=== PATIENT | male | born 1995 | race African-American/Black ===

== ENCOUNTER 2018-03-14 07:55 | Emergency (ER) | payer SELFPAY ==
[~2018-03-14] VITALS: Ht 167.6 cm; Wt 66.7 kg
--- NOTE | 2018-03-14 09:23 | ED EENT ---
History of Present Illness General Chief Complaint: Oral/Throat Problems Stated Complaint: THROAT HURTING, EAR HURTING Nursing Triage Note: ARRIVED VIA AMB TO ROOM 08. COMPLAINS OF THROAT PAIN X ONE MONTH AND LEFT EAR PAIN. Source: patient Exam Limitations: no limitations History of Present Illness Date Seen by Provider: March 14, 2018 Time Seen by Provider: 08:50 Initial Comments Here with report of sore throat and left ear pain that has been going on intermittently over the last month. Worse today. Denies breathing or swallowing problems. Denies weakness. Has not sought care for this yet. Timing/Duration: gradual, intermittent Severity: moderate Location: ear (L), throat Prearrival Treatment: no prearrival treatment Associated Symptoms: No cough, No ear drainage, No fever; nasal congestion/ drainage, sore throat; No tooth pain Allergies and Home Medications Allergies Coded Allergies: No Known Drug Allergies (Unverified , 03/14/18) Home Medications No Active Prescriptions or Reported Meds Patient Home Medication List Home Medication List Reviewed: Yes Review of Systems Constitutional: see HPI; No chills, No fever Eyes: No Symptoms Reported Ears: See HPI, Pain; Denies Clear Discharge, Denies Purulent Discharge Nose: see HPI, congestion Mouth: no symptoms reported Throat: see HPI, pain, swelling; denies neck stiffness, denies hoarse, denies aphonia, denies muffled Respiratory: No cough, No short of breath Cardiovascular: no symptoms reported Gastrointestinal: no symptoms reported All Other Systems Reviewed Negative Unless Noted: Yes Past Yhophiw-Fubohp-Vaules Hx Past Med/Social Hx: Reviewed Nursing Past Med/Soc Hx Patient Social History Alcohol Use: Denies Use Recreational Drug Use: No Smoking Status: Current Everyday Smoker Recent Foreign Travel: No Contact w/Someone Who Travel: No Recent Infectious Disease Expo: No Recent Hopitalizations: No Past Medical History Surgeries: No Respiratory: No Cardiac: No Neurological: No Genitourinary: No Gastrointestinal: No Musculoskeletal: No Endocrine: No HEENT: No Cancer: No Psychosocial: No Integumentary: No Family Medical History Reviewed Nursing Family Hx Hypertension Physical Exam Vital Signs Vital Signs - First Documented 03/14/18 08:10 Temp 98.0 Pulse 67 Resp 18 B/P (MAP) 145/95 (112) Pulse Ox 97 General Appearance: WD/WN, no apparent distress Eyes: bilateral eye normal inspection, bilateral eye PERRL, bilateral eye EOMI Ears: right ear TM normal; left ear TM dull, left ear other (TM opaque and discolored brownish.); bilateral ear auricle normal, bilateral ear canal normal Nose: other (bilateral nasal congestion) Mouth/Throat: pharynx tenderness, tonsillar exudate, tonsillar swelling Neck: full range of motion, supple Cardiovascular: regular rate, rhythm, no murmur Respiratory: lungs clear, normal breath sounds Gastrointestinal: non tender, soft Neurologic/Psychiatric: alert, oriented x 3 Skin: normal color, warm/dry Progress/Results/Core Measures Results/Orders Lab Results Laboratory Tests Test 03/14/18 08:49 Range/Units Group A Streptococcus Screen NEGATIVE NEGATIVE My Orders Orders - FRANK MCKENNA MD Rapid Strep A Screen (03/14/18 08:48) Vital Signs/I&O 03/14/18 08:10 Temp 98.0 Pulse 67 Resp 18 B/P (MAP) 145/95 (112) Pulse Ox 97 Blood Pressure Mean: 112 Progress Progress Note : Progress Note Seen and evaluated. Strep screen and throat culture obtained. I did spend some time talking with the patient about hypertension and the fact that he needs to have that rechecked and to seek primary care since he is new to the area. We will treat outpatient for throat infection that also involves the ear and may also call the sinuses. We will start high-dose amoxicillin initially but may need to change this if this is not effective. This was discussed with the patient. He is asking for $4 prescription medication so we will try the amoxicillin. Discharged home with return precautions. Patient and family verbalize understanding instructions and agreement with plan. Departure Impression Primary Impression: Pharyngitis, acute Qualified Codes: J02.9 - Acute pharyngitis, unspecified Disposition: HOME, SELF-CARE Condition: Improved Departure-Patient Inst. Decision time for Depature: 09:33 Referrals: NO,LOCAL PHYSICIAN (PCP/Family) Primary Care Physician Patient Instructions: Ear Infections (Otitis Media) (DC), Sore Throat, Adult ( DC) Add. Discharge Instructions: All discharge instructions reviewed with patient and/or family. Voiced understanding. Take medications as directed. Follow-up with your doctor or Dr. your choosing within one week for recheck and further evaluation. Return for worse pain, fever, vomiting, weakness, breathing problems or other concerns as needed. You should monitor your blood pressure daily and record that. Take that information to your doctor for further evaluation of possible or probable high blood pressure in you. You may take ibuprofen 800 mg every 8 hours as needed for pain. You may take Tylenol/acetaminophen 1000 mg every 8 hours as needed for pain. Scripts Amoxicillin (Amoxicillin) 500 Mg Capsule 1000 MG PO TID, #60 CAP 0 Refills Prov: FRANK MCKENNA MD 03/14/18 FRANK MCKENNA MD March 14, 2018 09:23
[2018-03-14] MEDS ORDERED: AMOX500C2 PO (09:36)
[2018-03-14 09:51] VITALS: BP 135/85
== END 2018-03-14 09:51 | disposition home or self-care (01) ==
LOC: ER 08:03
DX: J02.9 Acute pharyngitis, unspecified (principal); F17.200 Nicotine dependence, unspecified, uncomplicated
CPT/HCPCS: 87430; 99282